=== PATIENT | female | born 1945 | race Caucasian/White ===

== ENCOUNTER 2022-04-10 11:07 | Emergency (ER) | payer MEDICARE, SELFPAY ==
--- NOTE | 2022-04-10 | CRLHL7_ITS ---
For Patients: As a result of the Cures Act, medical imaging exams and procedure reports are released immediately into your electronic medical record. You may view this report before your referring provider. If you have questions, please contact your health care provider. Indication: Fall Technique: Two views left humerus Comparison: X-rays 04/10/2022 Findings: Left reverse here arthropathy exacerbates position. Oblique fracture through the mid humerus along the distal aspect of the humeral prostheses without significant displacement or angulation. No hardware fracture. Dictated by Ivonne Conklin MD @ 04/10/2022 12:25:49 PM (Electronically Signed)
[2022-04-10 11:15] VITALS: BP 134/68; PULSE 88; RESP 20; TEMP 36.4; O2SAT 96; BMI 27.4
--- NOTE | 2022-04-10 11:29 | CRLHL7_ITS ---
For Patients: As a result of the Cures Act, medical imaging exams and procedure reports are released immediately into your electronic medical record. You may view this report before your referring provider. If you have questions, please contact your health care provider. Indication: Pain Technique: Three left shoulder Comparison: No comparison Findings: Left humeral reverse arthroplasty in satisfactory position no acute fractures seen. Dictated by Ivonne Conklin MD @ 04/10/2022 12:24:08 PM (Electronically Signed)
--- NOTE | 2022-04-10 11:46 | ED.GENADULT ---
HPI - General Adult General Chief complaint: Extremity Pain/Injury, Upper Stated complaint: L arm injury Time Seen by Provider: 04/10/22 11:10 Source: patient History of Present Illness HPI narrative: Patient is a 76-year-old woman here with her son-in-law. She is in town for a wedding and staying at a hotel. She was taking a shower and says that the tub surface was slippery. There was a bar to hold onto and she was using both hands to hold on while she stepped out of the shower. Her foot slipped and she swung to the side, hitting her left mid arm on the corner of the showers around. She said that she heard a crack when that happened. She complains of pain in the mid upper arm, as well as the left scapular area. She described that scapular pain as mid back but she does not have any midline pain in the back. She has some pain that extends up the left side of her neck but does not have any midline pain in her neck. Did not hit her head and had no loss of consciousness. Does not have any chest pain, difficulty breathing, or other complaints. Only blood thinner is a baby aspirin daily. 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 Related Data Home Medications Medication Instructions Recorded Confirmed aspirin 81 mg tablet,delayed 81 mg PO DAILY 04/10/22 04/10/22 release (Gutierrez Low Dose Aspirin) atorvastatin 20 mg tablet 20 mg PO DAILY 04/10/22 04/10/22 cetirizine 10 mg tablet (All Day 10 mg PO DAILY PRN 04/10/22 04/10/22 Allergy (cetirizine)) glipizide 10 mg tablet 10 mg PO DAILY 04/10/22 04/10/22 losartan 25 mg tablet 25 mg PO DAILY 04/10/22 04/10/22 metformin 1,000 mg tablet 1,000 mg PO BID 04/10/22 04/10/22 montelukast 10 mg tablet 10 mg PO DAILY 04/10/22 04/10/22 Allergies Allergy/AdvReac Type Severity Reaction Status Date / Time amoxicillin Allergy Verified 04/10/22 11:27 azithromycin [From Zithromax] Allergy Verified 04/10/22 11:27 Penicillins Allergy Verified 04/10/22 11:27 piroxicam Allergy Verified 04/10/22 11:27 Sulfa (Sulfonamide Allergy Verified 04/10/22 11:27 Antibiotics) terbinafine Allergy Verified 04/10/22 11:27 tetracycline Allergy Verified 04/10/22 11:27 Review of Systems Status of ROS: Reports: 10 or more systems reviewed and unremarkable except as noted in History and below [facility] Social History Smoking Status: Current every day smoker What tobacco products do you use: cigarettes Do you use any of these nicotine containing products: None Second hand tobacco smoke exposure: No How often do you have a drink containing alcohol: monthly or less How often do you have six or more drinks on one occasion: Never AUDIT-C Alcohol total score: 1 Non-prescribed substance use: denies use Exam Narrative: Exam Narrative: Vital signs as noted above. In general, an alert, well-appearing patient. Head: Normocephalic, atraumatic. Eyes: Pupils are equal reactive. Extraocular movements are full. Conjunctivae are normal. ENT: Mucous membranes are moist. Throat is normal. Neck: Supple without lymphadenopathy. Nontender to palpation. Heart: Regular rate and rhythm. No murmur or rub. Lungs: Clear bilaterally. No increased work of breathing, crackles or wheezes. Abdomen: Soft and nontender. No organomegaly. Back: Nontender to palpation in the midline, atraumatic in appearance. Extremities: The contour of her left shoulder is flattened compared to the right, unclear whether this is due to dislocation or postoperative. She does not have any tenderness of the shoulder itself. The scapular likewise is nontender. The humerus does not show any evidence of deformity, she has some mild diffuse tenderness of the left upper arm. Distal CMS is normal. I did not perform range of motion of the shoulder on my initial exam. Right upper extremities atraumatic Neurologic: Patient is alert and oriented to person and place. Speech is fluent. Face is symmetric. Moves all extremities equally. Affect: Normal. Skin: Warm and dry. Well perfused. Const: Vital Signs, click to edit/add: Vital Signs - 24 hr 04/10/22 11:15 Temperature 97.6 F Pulse Rate [Right Pulse Oximeter] 88 Respiratory Rate 20 Blood Pressure [Ri ght Upper Arm] 134/68 Pulse Oximetry 96 Oxygen Delivery Me thod Room Air Documenting provider has reviewed patient's vital signs: yes Course Course Hospital Course: She requested pain medication prior to x-ray, an IV was placed and she was given 4 mg of morphine. X-rays of the left shoulder were ordered, by my review, these show intact hardware without evidence of dislocation or fracture. X-rays of the humerus show a periprosthetic fracture without significant displacement. The final radiology reports agree with my assessments. I did review this briefly with Orthopedics to establish the best way to immobilize this, and then put her in a long-arm splint using Ortho Glass and 3 Guerrero wraps. She had 4 additional mg of morphine after that. I am going to send her home with oxycodone, 1/2-1 tab as needed for more severe pain in addition to Tylenol, 1000 mg 3 times daily. She had her surgery done by [facility], and so I have recommended that she follow-up with them next week. She does not have any midline back pain, I do not think she needs spinal imaging, her back pain is all periscapular, near her shoulder, and I think is referred from her arm which at this time seems to radiate down the arm, up over her shoulder, and up into the side of her neck. Her scapula itself is nontender and on x-ray I do not see any evidence of fracture, she also did not have any trauma to her back directly. Vital Signs Vital signs: Initial Vital Signs Temperature 97.6 F 04/10/22 11:15 Temperature Source Temporal Artery Scan 04/10/22 11:15 Pulse Rate 88 04/10/22 11:15 Respiratory Rate 20 04/10/22 11:15 Blood Pressure 134/68 04/10/22 11:15 Blood Pressure Mean 90 04/10/22 11:15 Pulse Oximetry 96 04/10/22 11:15 Oxygen Delivery Method 04/10/22 11:15 Vital Signs Temperature 97.6 F 04/10/22 11:15 Pulse Rate 88 04/10/22 11:15 Respiratory Rate 20 04/10/22 11:15 Blood Pressure 134/68 04/10/22 11:15 Pulse Oximetry 96 04/10/22 11:15 Oxygen Delivery Method 04/10/22 11:15 Temperature 97.6 F 04/10/22 11:15 Pulse Rate 88 04/10/22 11:15 Respiratory Rate 20 04/10/22 11:15 Blood Pressure 134/68 04/10/22 11:15 Pulse Oximetry 96 04/10/22 11:15 Oxygen Delivery Method 04/10/22 11:15 Discharge Plan Discharge Clinical Impression: History of left shoulder replacement, Closed left humeral fracture Patient Disposition: Home, Self-Care Condition: Improved Instructions: Arm Fracture in Adults (ED) Additional Instructions: Tylenol 1000 mg 3 times a day. Oxycodone 1/2-1 tab as needed for uncontrolled pain. Follow-up with Orthopedics next week. Return for new or worsening symptoms. Prescriptions: No Action metformin 1,000 mg tablet 1,000 mg PO BID montelukast 10 mg tablet 10 mg PO DAILY cetirizine [All Day Allergy (cetirizine)] 10 mg tablet 10 mg PO DAILY PRN aspirin [Gutierrez Low Dose Aspirin] 81 mg tablet,delayed release (DR/EC) 81 mg PO DAILY glipizide 10 mg tablet 10 mg PO DAILY atorvastatin 20 mg tablet 20 mg PO DAILY losartan 25 mg tablet 25 mg PO DAILY Follow Up/Referrals: Provider,Not a Local [Primary Care Provider] - Stand Alone Forms: Badge Info Instructions
[2022-04-10] MEDS: MORPHINE 4 MG/ML INJ IVP ×2 (12:00→13:14)
--- NOTE | 2022-04-10 12:02 | ED.NURSE ---
dr patten in and explaining findings. has jennifer-prosthetic fracture.
[2022-04-10 12:05] VITALS: BP 131/69; PULSE 88; O2SAT 94
[2022-04-10] MEDS: ONDANSETRON 2 MG/ML inj 4 MG IVP (12:08)
[2022-04-10 12:30] VITALS: BP 111/58; PULSE 79; RESP 20; O2SAT 95
[2022-04-10 13:08] VITALS: BP 116/66; PULSE 80; O2SAT 97
[2022-04-10 13:40] VITALS: BP 116/46; PULSE 84; O2SAT 96
== END 2022-04-10 14:10 | disposition home or self-care (01) ==
PROVIDERS: Emergency Provider Emergency Medicine
DX: S42.302A Unspecified fracture of shaft of humerus, left arm, initial encounter for closed fracture (principal)
CPT/HCPCS: 29105; 73030; 73060; 96374; 96375; 96376; 99283; 99284; J2270; J2405